=== PATIENT | male | born 1985 | race Caucasian/White ===

== ENCOUNTER 2017-01-09 16:57 | Emergency (ER) | payer SELFPAY ==
[2017-01-09] MEDS ORDERED: NEOMYCIN-BACITRACIN-POLYMYXIN 0.9 GM UD TOP ONE (19:18)
[2017-01-09] MEDS ORDERED: cefTRIAXone SODIUM 1 GM VIAL IM ONE (19:21)
[2017-01-09] MEDS ORDERED: SULFA/TRIMETH 800/160 (DS) TAB 1 EA TAB PO ONE (19:21)
[2017-01-09 19:22] VITALS: TEMP 98.9; O2SAT 98
[2017-01-09] MEDS ORDERED: TETANUS,DIPHTHERIA,PERTUSSIS 1 EA SYG IM ONE (19:22)
--- NOTE | 2017-01-09 19:25 | ED.PDOC ---
History of Present Illness - General Chief Complaint: Laceration Stated Complaint: laceration Time Seen by Provider: 01/09/17 19:21 Source: patient Exam Limitations: no limitations - History of Present Illness Initial Comments: The patient is a 31-year-old male presenting to the emergency room secondary to a 1.8cm laceration over the right proximal interphalangeal joint posteriorly. The laceration is fairly deep but does not appear to extend into the joint itself. There are partial lacerations of 2 tendons but no more than 20-30% laceration. Mechanical function of the thumb remains intact. He does have a small area of anesthesia just distal to the laceration but the sensation to the tip of the thumb and palm of the thumb appear to be intact. Capillary refills within normal limits. No other injuries. The laceration was given by piece of sheet metal. he is due for a tetanus shot. Timing/Duration: 4-6 hours Allergies/Adverse Reactions: Allergies Amoxicillin [From Augmentin] Allergy (Verified 01/09/17 19:22) Clavulanic Acid [From Augmentin] Allergy (Verified 01/09/17 19:22) Home Medications: Ambulatory Orders Sulfa/Trimeth 800/160 (Ds) Tab [Bactrim DS Tab] 1 ea PO BID #14 tab 01/09/17 Review of Systems - Review of Systems Constitutional: States: no symptoms reported EENTM: States: no symptoms reported Respiratory: States: no symptoms reported Cardiology: States: no symptoms reported Gastrointestinal/Abdominal: States: no symptoms reported Genitourinary: States: no symptoms reported Musculoskeletal: States: no symptoms reported Skin: States: see HPI Neurological: States: see HPI Endocrine: States: no symptoms reported All other Systems: No Change from Baseline Past Medical History (General) - Patient Medical History Hx Seizures: No Hx Stroke: No Hx Dementia: No Hx Asthma: No Hx of COPD: No Hx Cardiac Disorders: No Hx Congestive Heart Failure: No Hx Pacemaker: No Hx Hypertension: No Hx Thyroid Disease: No Hx Diabetes: No Hx Gastroesophageal Reflux: No Hx Renal Disease: No Hx Cancer: No Hx of HIV: No Hx Hepatitis C: No Hx MRSA: No - Vaccination History Hx Tetanus, Diphtheria Vaccination: - out of date Hx Influenza Vaccination: No Hx Pneumococcal Vaccination: No - Social History Hx Tobacco Use: Yes Hx Alcohol Use: Yes - occ Hx Substance Use: No Hx Substance Use Treatment: No Hx Depression: No Hx Physical Abuse: No Hx Emotional Abuse: No Hx Suspected Abuse: No Family Medical History - Family History Father Family History: No Known Living Status: Still Living Physical Exam - Physical Exam General Appearance: Alert, Comfortable, No apparent distress Eye Exam: bilateral normal Ears, Nose, Throat: hearing grossly normal, normal ENT inspection Neck: non-tender, full range of motion, supple Respiratory: chest non-tender, lungs clear, normal breath sounds, no respiratory distress, no accessory muscle use Cardiovascular/Chest: normal peripheral pulses, regular rate, rhythm, no edema Peripheral Pulses: radial,right: 2+, radial,left: 2+, dorsalis pedis,right: 2+, dorsalis pedis,left: 2+ Extremity: normal range of motion, no pedal edema, no calf tenderness, normal capillary refill, other - see history of present illness Neurologic: alert, normal mood/affect, oriented x 3, other - sensory deficit as per history of present illness. No motor deficit. Skin Exam: normal color - laceration as per history of present illness Comments: Vital Signs - 24 hr 01/09/17 17:30 Temperature 98.9 F Pulse Rate [ 77 Left Radial] Respiratory 20 Rate Blood Pressure 132/88 [Left Arm] O2 Sat by Pulse 98 Oximetry Progress - Progress Progress: 01/09/17 19:25 the patient is a 31-year-old male presenting to the emergency room secondary to a 1.8 cm laceration over the proximal interphalangeal joint of the dorsal aspect of the right thumb. There is no extension of the laceration into the joint space that I can see. There are 2 tendons that sustained 20-30% lacerations. motor function remains intact. There is a mild sensory deficit just distal to the laceration but does not extend to the tip of the thumb or the palmar aspect of the thumb. He should watch this area carefully as he can injure it without knowing it. After risks and benefits of repair were explained , the patient agrees to proceed. The wound was initially cleaned with hydrogen peroxide. Then 250 cc of sterile saline was used for irrigation. 1% Xylocaine without epinephrine was used 2 cc for local anesthetic. Sterile prep and drape were performed. 3 simple sutures of 3-0 Prolene were applied. Good hemostasis. Estimated blood loss in total less than 10 cc. the patient is being placed in a thumb spica and should remain in Place for at least 2-3 weeks. He should follow-up with his primary care doctor before discontinuing that. Sutures need to come out in 10 days to 2 weeks. The patient is receiving a dose of IM Rocephin here as well as a dose of oral Bactrim. He'll be placed Bactrim twice daily for a period of one week. He is also receiving a tetanus shot today as he is due. ER warnings are given for any evidence of infection. He should cover the wound with a Band-Aid and Neosporin ointment at least daily. After 24 hours he should wash the wound once to twice daily with an antibacterial soap. Departure - Departure Clinical Impression: Laceration ICD-10 Supporting Text: thumb of her right hand with partial tendon laceration and mild neurological deficit distal. Motor function remains intact. Disposition: Discharge to Home or Self Care Condition: Fair Departure Forms: ED Discharge - Pt. Copy, Patient Portal Self Enrollment Instructions: DI for Laceration Repair -- Finger Diet: regular diet Activity: no pushing/pulling with affected limb Prescriptions: Sulfa/Trimeth 800/160 (Ds) Tab [Bactrim DS Tab] 1 ea PO BID #14 tab Home Medications: Ambulatory Orders Sulfa/Trimeth 800/160 (Ds) Tab [Bactrim DS Tab] 1 ea PO BID #14 tab 01/09/17 Additional Instructions: the patient is a 31-year-old male presenting to the emergency room secondary to a 1.8 cm laceration over the proximal interphalangeal joint of the dorsal aspect of the right thumb. There is no extension of the laceration into the joint space that I can see. There are 2 tendons that sustained 20-30% lacerations. motor function remains intact. There is a mild sensory deficit just distal to the laceration but does not extend to the tip of the thumb or the palmar aspect of the thumb. He should watch this area carefully as he can injure it without knowing it. The wound was initially cleaned with hydrogen peroxide. Then 250 cc of sterile saline was used for irrigation. 1% Xylocaine without epinephrine was used 2 cc for local anesthetic. Sterile prep and drape were performed. 3 simple sutures of 3-0 Prolene were applied. Good hemostasis. Estimated blood loss in total less than 10 cc. the patient is being placed in a thumb spica and should remain in Place for at least 2-3 weeks. He should follow-up with his primary care doctor before discontinuing that. Sutures need to come out in 10 days to 2 weeks. The patient is receiving a dose of IM Rocephin here as well as a dose of oral Bactrim. He'll be placed Bactrim twice daily for a period of one week. He is also receiving a tetanus shot today as he is due. ER warnings are given for any evidence of infection. He should cover the wound with a Band-Aid and Neosporin ointment at least daily. After 24 hours he should wash the wound once to twice daily with an antibacterial soap.
[2017-01-09] MEDS ORDERED: LIDOCAINE 1% 10 ML VIAL INJ ONE (19:30)
[2017-01-09 19:45] VITALS: BP 120/78
== END 2017-01-09 19:47 | disposition home or self-care (01) ==
LOC: ER 16:57
DX: S66.221A Laceration of extensor muscle, fascia and tendon of right thumb at wrist and hand level, initial encounter (principal); Z88.3 Allergy status to other anti-infective agents; Z88.8 Allergy status to other drugs, medicaments and biological substances; Z23 Encounter for immunization; Z87.891 Personal history of nicotine dependence; W45.8XXA Other foreign body or object entering through skin, initial encounter